=== PATIENT | male | born 1990 | race Caucasian/White ===

== ENCOUNTER 2019-12-09 22:51 | Emergency (ER) | payer OTHER ==
[~2019-12-09] VITALS: Ht 177.8 cm; Wt 61.7 kg
[2019-12-09 23:10] VITALS: BP 142/90
--- NOTE | 2019-12-09 23:13 | NUR ---
TO LOBBY A/W BED AMBULATORY
--- NOTE | 2019-12-10 01:00 | NUR ---
PT C/O RIGHT FOOT PAIN X 2 DAY. PT STATES DROPPED A LOG ON FOOT. PT APPEARS TO BE IN NO DISTRESS. VSS. PT PMSC INTACE. WAITING FOR DR TO SEE PT.
--- NOTE | 2019-12-10 03:00 | NUR ---
NO CHANGES FROM PREVIOUS ASSESSMENT. PT VSS. NO CHANGES FROM PREVIOUS ASSESSMENT. Patient discharged with v/s stable. Written and verbal after care instructions given and explained. Patient alert, oriented and verbalized understanding of instructions. Ambulatory with steady gait. All questions addressed prior to discharge. ID band removed. Patient advised to follow up with PMD. Rx of KEFLEX AMD TINACTIN given. Patient educated on indication of medication including possible reaction and side effects. Opportunity to ask questions provided and answered.
[2019-12-10 03:20] VITALS: BP 136/88
== END 2019-12-10 03:20 | disposition home or self-care (01) ==
LOC: MED 22:51
DX: B35.3 Tinea pedis (principal)
CPT/HCPCS: 99283